=== PATIENT | male | born 1990 ===

== ENCOUNTER → 2022-08-30 | Outpatient (REF) | LOC: M LAB 15:16 | PROVIDERS: ATTEND Nurse Practitioner Adult Health | DX: Z02.1 Encounter for pre-employment examination (principal) ==

== ENCOUNTER → 2022-12-01 | Outpatient (REF) | LOC: M EMP 10:45 | PROVIDERS: ATTEND Family Medicine | DX: Z11.52 Encounter for screening for COVID-19 (principal) ==